=== PATIENT | female | born 1965 | race Caucasian/White ===

== ENCOUNTER 2022-12-01 08:17 | Outpatient (CLI) | payer OTHER | END 2022-12-01 08:18 | disposition home or self-care (01) | LOC: BICMAMMO 08:17 | PROVIDERS: ATTEND Nurse Practitioner Family | DX: N63.14 Unspecified lump in the right breast, lower inner quadrant (principal) | CPT/HCPCS: G0279 ==

== ENCOUNTER 2023-01-02 16:40 | Emergency (ER) | payer OTHER ==
[2023-01-02] MEDS ORDERED: Ondansetron PF 4 MG/2 ML Vial ONE (17:16)
[2023-01-02] MEDS ORDERED: Lidocaine 2% Viscous Solution 10 ML, Aluminum & Magnesium Hydroxide 30 ML SSW SCH (17:30)
[2023-01-02 17:50] LABS: #Basophils 0.1 thou/uL (0.0-0.2); #Eosinphils 0.2 thou/uL (0.0-0.7); #Monocytes 0.8 thou/uL (0.11-0.59); #Neutrophils 5.2 thou/uL (1.40-6.50); %Basophils 0.5 % (0.0-1.0); %Eosinophils 2.5 % (0.0-10.0); %Lymphocytes 34.9 % (21.0-51.0); %Monocytes 8.1 % (0.0-10.0); %Neutrophils 53.7 % (42.0-75.0); Hematocrit 41.2 % (36.0-47.0); Hemoglobin 13.6 g/dL (12.0-16.0); Mean Corpuscular Hemoglobin 28.8 pg (27.0-31.0); Mean Corpuscular Volume 87.3 fl (78.0-98.0); Mean Platelet Volume 9.7 fL (7.4-10.4); Platelet Count 288 10x3/uL (130-400); RBC Distribution Width 13.3 % (11.5-14.5); Red Blood Cell (RBC) Count 4.72 mill/uL (4.20-5.40); White Blood Cell (WBC) Count 9.7 10x3/uL (4.8-10.8)
[2023-01-02 18:11] LABS: Bacteria/HPF None Seen HPF (None Seen); Bilirubin Negative (Negative); Blood, Urine Negative (Negative); CAUTI Indications for Culture Pelvic or flank pain; Clarity Clear (Clear); Glucose, Urine (Dipstick) Normal (Negative); Ketone, Urine Negative (Negative); Leukocyte Negative Leu/uL (Negative); Nitrite Negative (Negative); Protein, Urine (Dipstick) Negative (Neg-Trace); RBC/HPF 0-3 HPF (0-3); Specific Gravity, Urine 1.012 (1.002-1.036); Squamous Epithelial 0-3 HPF (0-3); Urobilinogen Normal mg/dL (Less than 2); WBC/HPF 0-3 HPF (0-3)
[2023-01-02 18:13] LABS: Urine Culture Reflex No No
[2023-01-02 18:23] LABS: ALT (SGPT) 36 U/L (8-55); AST (SGOT) 30 U/L (5-34); Albumin 4.2 g/dL (3.5-5.0); Alkaline Phosphatase 103 U/L (40-110); Anion Gap 12 mmol/L (10-20); BUN (Urea Nitrogen) 12 mg/dL (9.8-20.1); Bilirubin, Total 0.3 mg/dL (0.2-1.2); Calc. Creatinine Clearance 0 mL/min (70-130); Calcium 9.8 mg/dL (7.8-10.44); Carbon Dioxide 22 mmol/L (22-29); Chloride 107 mmol/L (98-107); Estimated GFR 100; Globulin 3.4 g/dL (2.4-3.5); Glucose 121 mg/dL (70-105); Lipase 16 U/L (8-78); Magnesium 1.9 mg/dL (1.6-2.6); Potassium 3.5 mmol/L (3.5-5.1); Protein, Total 7.6 g/dL (6.0-8.3); Sodium 137 mmol/L (136-145)
[2023-01-02 18:27] LABS: Troponin I Less than 0.010 ng/mL (< 0.028)
== END 2023-01-02 18:50 | disposition home or self-care (01) ==
LOC: ERS 16:40
DX: R10.13 Epigastric pain (principal); I10 Essential (primary) hypertension; K21.9 Gastro-esophageal reflux disease without esophagitis; Z79.899 Other long term (current) drug therapy
CPT/HCPCS: 36415; 71045; 80053; 81001; 83690; 83735; 84484; 85025; 93005; 96360; J2405

== ENCOUNTER → 2023-01-23 | Day surgery (SDC) | payer OTHER | LOC: BICULT 11:51 | PROVIDERS: ATTEND Nurse Practitioner Family | PROC: 0HBT3ZX Excision of Right Breast, Percutaneous Approach, Diagnostic (ICD-10-PCS; principal; 2023-01-23) | DX: D24.1 Benign neoplasm of right breast (principal) | CPT/HCPCS: 19083; 88305 ==

== ENCOUNTER 2023-02-03 09:43 | Emergency (ER) | payer OTHER ==
[2023-02-03] MEDS ORDERED: Ketorolac Tromethamine 30 MG/ML VIAL ONE (10:02)
[2023-02-03] MEDS ORDERED: HYDROcodone/Acetaminophen 10/325 mg Tablet ONE (10:03)
== END 2023-02-03 10:34 | disposition home or self-care (01) ==
LOC: ERS 09:43
DX: S63.502A Unspecified sprain of left wrist, initial encounter (principal); I10 Essential (primary) hypertension; K21.9 Gastro-esophageal reflux disease without esophagitis; W18.30XA Fall on same level, unspecified, initial encounter; Z79.899 Other long term (current) drug therapy
CPT/HCPCS: 29125; 96372; J1885